=== PATIENT | female | born 1995 | race African-American/Black ===

== ENCOUNTER 2017-08-07 17:15 | Emergency (ER) | payer OTHER ==
[~2017-08-07] VITALS: Ht 162.6 cm; Wt 49.0 kg
[~2017-08-07 17:15] MED LIST: BACT800T5 PO; CYCL1TAB29 PO; DICL50TA3 PO; DOXY100T PO; ULTR50TA5 PO; ZOFR4TAB3 SL
[2017-08-07 17:28] VITALS: BP 108/67; PULSE 82; RESP 18; TEMP 98.3; O2SAT 98
[2017-08-07 17:48] LABS: BACTERIA, URINE RARE /hpf; BLOOD, URINE MOD (NEG); COMMENT (UR) CULTURE INDICATED; CULTURE IF INDICATED CULTURE INDICATED; GLUCOSE,URINE NEG (NEG); KETONE, URINE 40 mg/dL (NEG); MUCUS URINE MOD /lpf (OCC); NITRITE,URINE NEG (NEG); SQUAMOUS EPITHELIAL CELL URINE 1 /hpf (0-5); URINE COLOR YELLOW (YELLW/STRAW)
[2017-08-07 18:00] VITALS: BP 124/69; PULSE 80; RESP 18; TEMP 98.9; O2SAT 100
[2017-08-07] MEDS ORDERED: MACR100C2 PO (18:18)
[2017-08-07] MEDS ORDERED: LO LTAB PO (18:18)
--- NOTE | 2017-08-07 18:20 | PD ---
HPI Chief Complaint: GI Complaint Time Seen by Provider: 17:54 Travel History International Travel<30 days: No Contact w/Intl Traveler<30days: No Traveled to known affect area: No History of Present Illness HPI patient c/o nausea, irreg period, and concern for ...denies any actual pain to her head/chest/abd/pelvis, denies any vag d/c, denies any fever/cough/ runny nose/rectal bleed/ PFSH Past Medical History Medical History: Denies Significant Hx Diminished Hearing: No Immunizations Current: Yes Tetanus Vaccination: Unknown Influenza Vaccination: No ?: Not LMP: 07/27/17 Past Surgical History Surgical History: No Previous Surgery Social History Alcohol Use: No (DENIES) Tobacco Use: No (DENIES) Substance Use: No Allergies-Medications (Allergen,Severity, Reaction): Coded Allergies: No Known Allergies (Unverified , 08/07/17) Reported Meds & Prescriptions Reported Meds & Active Scripts Active Bactrim DS (Sulfamethoxazole-Trimethoprim) 800-160 Mg Tab 1 Tab PO BID Doxycycline Hyclate 100 Mg Tab 100 Mg PO BID Ultram (Tramadol HCl) 50 Mg Tab 50 Mg PO Q6H PRN Zofran Odt (Ondansetron Odt) 4 Mg Tab 4 Mg SL Q6HR PRN Flexeril (Cyclobenzaprine HCl) 10 Mg Tab 10 Mg PO TID Diclofenac Sodium DR (Diclofenac Sodium) 50 Mg Tabdr 50 Mg PO TID Review of Systems Except as stated in HPI: all other systems reviewed are Neg Physical Exam Narrative GENERAL: SKIN: Warm and dry. HEAD: Atraumatic. Normocephalic. EYES: Pupils equal and round. No scleral icterus. No injection or drainage. ENT: No nasal bleeding or discharge. Mucous membranes pink and moist. NECK: Trachea midline. No JVD. CARDIOVASCULAR: Regular rate and rhythm. RESPIRATORY: No accessory muscle use. Clear to auscultation. Breath sounds equal bilaterally. GASTROINTESTINAL: Abdomen soft, non-tender, nondistended. MUSCULOSKELETAL: Extremities without clubbing, cyanosis, or edema. No obvious deformities. NEUROLOGICAL: Awake and alert. No obvious cranial nerve deficits. Motor grossly within normal limits. Five out of 5 muscle strength in the arms and legs. Normal speech. PSYCHIATRIC: Appropriate mood and affect; insight and judgment normal. Data Data Last Documented VS Vital Signs Date Time Temp Pulse Resp B/P (MAP) Pulse Ox O2 Delivery O2 Flow Rate FiO2 08/07/17 18:00 18 08/07/17 18:00 98.9 80 124/69 (87) 100 Room Air Orders Orders Urinalysis - C+S If Indicated (08/07/17 17:26) Ed Urine Pregnancytest Poc (08/07/17 17:26) Urine Culture (08/07/17 17:35) Labs Laboratory Tests Test 08/07/17 17:35 Urine Color YELLOW Urine Turbidity CLEAR Urine pH 6.0 Urine Specific [place] 1.033 Urine Protein TRACE mg/dL Urine Glucose (UA) NEG mg/dL Urine Ketones 40 mg/dL Urine Occult Blood MOD Urine Nitrite NEG Urine Bilirubin NEG Urine Urobilinogen 2.0 MG/DL Urine Leukocyte Esterase LARGE Urine RBC 12 /hpf Urine WBC 34 /hpf Urine Squamous Epithelial Cells 1 /hpf Urine Bacteria RARE /hpf Urine Mucus MOD /lpf Microscopic Urinalysis Comment CULTURE INDICATED MDM Medical Decision Making Medical Screen Exam Complete: Yes Emergency Medical Condition: Yes Medical Record Reviewed: Yes Differential Diagnosis related v uti v dub Narrative Course tolerated po, neg preg, ua c/w uti, will d/c on abx and bcp to aid in her dub. Diagnosis Primary Impression: Dysfunctional uterine bleeding Additional Impression: UTI (urinary tract infection) Qualified Codes: N30.00 - Acute cystitis without hematuria Patient Instructions: Dysfunctional Uterine Bleeding (ED), General Instructions , Urinary Tract Infection in Women (ED) Scripts Norethindrone-Ethinyl Estradiol-Fe (Lo Loestrin Fe 11/05) 1-10 Mg-Mcg Tab 1 TAB PO DAILY for Control, #1 PACK 0 Refills Prov: Daniel Powell MD 08/07/17 Nitrofurantoin Monohydrate Macrocrystals (Macrobid) 100 Mg Capsule 100 MG PO BID for Infection, #20 CAP 0 Refills Prov: Daniel Powell MD 08/07/17 Disposition: 01 DISCHARGE HOME Condition: Stable Daniel Powell MD Aug 07, 2017 18:20
[2017-08-07 18:57] VITALS: BP 124/69
== END 2017-08-07 20:06 | disposition home or self-care (01) ==
LOC: NEPD 17:15
DX: N93.9 Abnormal uterine and vaginal bleeding, unspecified (principal); N30.00 Acute cystitis without hematuria
CPT/HCPCS: 81001; 84703; 87086; 99284

== ENCOUNTER 2017-11-12 11:43 | Emergency (ER) | payer OTHER ==
[~2017-11-12] VITALS: Ht 162.6 cm; Wt 50.0 kg
[~2017-11-12 11:43] MED LIST changes: +CYCL10TA PO; -CYCL1TAB29 PO; +LO LTAB PO; +MACR100C2 PO; +TRAM50 PO; -ULTR50TA5 PO
[2017-11-12 11:48] VITALS: BP 130/78; PULSE 84; RESP 17; TEMP 98.2; O2SAT 98
[2017-11-12] MEDS ORDERED: KETOROLAC TROMETHAMINE 60 MG/2 ML (IM) VIAL IM ONE (13:45)
[2017-11-12] MEDS ORDERED: IBUP1TAB7 PO (13:52)
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
== END 2017-11-12 14:50 | disposition home or self-care (01) ==
LOC: NEPK 11:43
DX: R51 Headache (principal)
CPT/HCPCS: 96372; 99284; J1885